=== PATIENT | female | born 1960 | race Caucasian/White ===

== ENCOUNTER → 2018-07-13 | Outpatient (CLI) | payer OTHER ==
[~2018-07-13] MED LIST: LEVOTHROID75 MCG PO; MAXALT MLT ODT10 M1 PO; MOBIC15 MG PO; SKELAXIN 800 M800 M1 PO; WELLBUTRIN SR150 MG PO; ZANAFLEX4 M1 PO
== END ==
LOC: M.RAD 07-01 10:39
DX: N63.10 Unspecified lump in the right breast, unspecified quadrant (principal); M85.89 Other specified disorders of bone density and structure, multiple sites; R92.2 Inconclusive mammogram; E03.9 Hypothyroidism, unspecified; N95.1 Menopausal and female climacteric states